=== PATIENT | male | born 1970 | race Caucasian/White ===

== ENCOUNTER 2016-10-29 18:32 | Emergency (ER) | payer SELFPAY ==
--- NOTE | 2016-10-29 19:29 | Emergency Department Record ---
History of Present Illness - General Chief complaint: Lower Extremity Pain Stated complaint: RT LEG PAIN AND BRUSING Time Seen by Provider: 10/29/16 19:13 Source: Patient Mode of Arrival: crutches Limitations: No limitations - History of Present Illness Initial comments: 46 yo male presents with bruising to his LLE. He had a fracture one week ago and was transferred to [facility]. He has done well after surgery. No pain. He noted the bruising and was concerned. The bruising is on the toes and dependent parts of the leg. No cough or chest pain. He wiggles his foot in the splint without calf pain. He is using his crutches. He has follow up this week. MD Complaint: Other (Bruising) Onset/Timin -: Days(s) Location: Right History of Same: No Radiation: None Quality: Other Consistency: Constant Improves with: Nothing Worsens with: Nothing Associated Symptoms: Denies other symptoms - Related Data Home Medications Medication Instructions Recorded Confirmed Last Taken Venlafaxine HCl [Effexor Xr] 150 mg PO DAILY 10/22/16 10/22/16 10/21/16 Blood Thinner Shot In The Stomach 10/29/16 Unknown Hydrocodone/Acetaminophen [Hope 1 tab PO Q6H PRN 10/29/16 10/29/16 Unknown 5mg/325mg] Allergies Allergy/AdvReac Type Severity Reaction Status Date / Time No Known Drug Allergies Allergy Verified 10/22/16 10:34 Travel Screening - Travel/Exposure Within Last 30 Days Have you traveled within the last 30 days?: No - Travel/Exposure Within Last Year Have you traveled outside the [place] in the last year?: No - Additonal Travel Details Have you been exposed to anyone with a communicable illness?: No - Travel Symptoms Symptom Screening: None Review of Systems Constitutional: Denies: Chills, Fever, Malaise, Weakness Eyes: Denies: Eye discharge, Eye pain, Photophobia ENT: Denies: Congestion, Throat pain Respiratory: Denies: Cough, Dyspnea, Hemoptysis, Wheezes Cardiovascular: Denies: Chest pain, Palpitations, Syncope Endocrine: Denies: Fatigue Gastrointestinal: Denies: Abdominal pain, Nausea, Vomiting Genitourinary: Denies: Dysuria, Frequency, Hematuria Musculoskeletal: Denies: Arthralgia, Joint swelling, Myalgia, Neck pain Skin: Reports: As per HPI, Bruising Neurological: Denies: Headache Psychiatric: Denies: Anxiety Hematological/Lymphatic: Reports: Easy bruising. Denies: Blood Clots, Easy bleeding Past Medical History - SOCIAL HISTORY Smoking Status: Current every day smoker Alcohol Use: None Drug Use: None - RESPIRATORY Hx Respiratory Disorders: No - CARDIOVASCULAR Hx Cardio Disorders: No - NEURO Hx Neuro Disorders: No - GI Hx GI Disorders: No - Hx Genitourinary Disorders: No - ENDOCRINE Hx Endocrine Disorders: No Hx Diabetes: No Hx Thyroid Disease: No - MUSCULOSKELETAL Hx Musculoskeletal Disorders: No - PSYCH Hx Psych Problems: Yes Hx Anxiety: Yes - HEMATOLOGY/ONCOLOGY Hx Hematology/Oncology Disorders: No Family Medical History Any Significant Family History?: No Hx Heart Disease: Father Hx HTN: Mother Physical Exam - General General Appearance: Alert, Oriented x3, Cooperative, No acute distress Limitations: No limitations - Head Head exam: Normal inspection - Eye Eye exam: Normal appearance, PERRL - ENT ENT exam: Normal exam Ear exam: Normal external inspection Nasal Exam: Normal inspection Mouth exam: Normal external inspection Teeth exam: Normal inspection Throat exam: Normal inspection - Neck Neck exam: Normal inspection, Full ROM. negative: Tenderness - Respiratory Respiratory exam: Normal lung sounds bilaterally. negative: Accessory muscle use, Prolonged expiratory, Respiratory distress, Rhonchi, Stridor, Wheezes - Cardiovascular Cardiovascular Exam: Regular rate, Normal rhythm, Normal heart sounds Peripheral Pulses: 2+: Dorsalis Pedis (L) - Rectal Rectal exam: Deferred - exam: Deferred - Extremities Extremities exam: Normal capillary refill. negative: Normal inspection, Full ROM (splinted), Pedal edema, Tenderness Image of Full Body: 1 - The patient has mild bruising of the posterior leg, no tenderness, he has bruising of the toes as well, he is able to move the foot and ankle without pain in the calf, no calf tenderness on palpation - Back Back exam: Denies: CVA tenderness (R), CVA tenderness (L) - Neurological Neurological exam: Alert, Oriented X3. negative: Motor sensory deficit - Psychiatric Psychiatric exam: Normal affect, Normal mood - Skin Skin exam: Other (bruising) Course Vital Signs 10/29/16 19:11 Temperature 97.8 F Pulse Rate 93 H Respiratory 20 Rate Blood Pressure 131/82 Pulse Ox 98 - Reevaluation(s) Reevaluation #1: The patient was seen and examined His calf is very soft and non tender The bruising is dependent as expected after his surgery an on Lovenox No strong suspicion for DVT given he is non tender and no swelling He was reassured and instructed to continue his current treatment and follow up this week as scheduled with his orthopedist 10/29/16 19:27 Disposition Disposition: Discharge Clinical Impression: Ecchymosis Disposition: Home, Self-Care Condition: (1) Good Instructions: Contusion in Adults (ED) Additional Instructions: Return if you have fever, pain, redness or any swelling Continue your current medications Follow up as scheduled with your orthopedic doctor this week Elevated as much as possible and use your crutches at all times Forms: Patient Portal Access Time of Disposition: 19:30
== END 2016-10-29 19:48 | disposition home or self-care (01) ==
LOC: ER 18:32
DX: R23.3 Spontaneous ecchymoses (principal); Z98.890 Other specified postprocedural states
CPT/HCPCS: 99282